=== PATIENT | female | born 1985 | race Caucasian/White ===

== ENCOUNTER → 2020-09-13 14:51 | Outpatient (CLI) | payer BC, SELFPAY ==
--- NOTE | ~2020-09-13 | US_ITS ---
EXAMINATION: US OB <= 14 weeks fetus EXAM DATE: 09/13/2020 15:11 INDICATION: Unable to hear doppler FHT's. 1st trimester. TECHNIQUE: Pelvic obstetrical transabdominal sonogram was performed by a technologist. There are mu ltiple grayscale and Doppler images available for interpretation. There are no earlier studies of th is gestation for comparison. FINDINGS: Uterus measures 10.8 x 7.1 x 9.8 cm. There is intrauterine gestation sac. pole with heart rate confirmed at 179 beats per minute. The 6.1 cm crown-rump length corresponds to estimated gestational age by ultrasound of 12 weeks 4 days, estimated date of confinement 03/24/2021. Yolk sa c is identified. There is no sonographic evidence of subchorionic hemorrhage. Right ovary is morp hologically normal, the left is not identified. IMPRESSION: 1. Live intrauterine gestation, age by ultrasound 12 weeks 4 days. Reviewed, dictated and finalized at location B.
== END ==
PROVIDERS: Visit Provider Obstetrics & Gynecology Gynecology
DX: Z36.89 Encounter for other specified antenatal screening (principal); Z3A.12 12 weeks gestation of pregnancy
CPT/HCPCS: 76801

== ENCOUNTER → 2020-11-01 13:13 | Outpatient (CLI) | payer BC, SELFPAY ==
--- NOTE | ~2020-11-01 | US_ITS ---
EXAMINATION: US OB /maternal detail DATE: 11/01/2020 13:44 INDICATION: Second trimester anatomic survey TECHNIQUE: Real-time ultrasound of the pelvis was performed. COMPARISON: None. FINDINGS: There is a single living fetus in breech presentation. The placenta is anterior and 7 mm from the int ernal cervical os. heart rate is 154 beats per minute (bpm). cardiac activity and movement are noted. The amniotic fluid index is subjectively normal. The following anatomy was identified as normal: 4 chamber heart 3 vessel cord cord insertion kidneys urinary bladder stomach spine diaphragm ventricles cisterna magna cerebellum The following biometric data were obtained: Biparietal diameter (BPD): 4.11 cm; head circumference (HC): 5.8 cm; abdominal circumference (AC): 13 .4 cm; femur length (FL): 2.8 cm. These measurements are concordant. Estimated weight is 259 g +/- 38 g, which correlates with the 12th percentile when 03/24/2021 i s used as estimated date of delivery. As single measurements, these parameters are each equal to the following estimated gestational ages w ith ranges of +/- 2 standard deviations: BPD: 18 weeks 3 days ( 16 weeks 5 days - 20 weeks 1 days). HC: 18 weeks 5 days ( 17 weeks 2 days - 20 weeks 1 days). AC: 18 weeks 6 days ( 16 weeks 6 days - 21 weeks 0 days). FL: 18 weeks 6 days ( 17 weeks 0 days - 20 weeks 4 days). estimated gestational age based solely on measurements from this exam is 18 weeks 5 days +/- 1 weeks 2 days. IMPRESSION: 1. Single living fetus in breech presentation. 2. Estimated weight is 259 g +/- 38 g, which correlates with the 12th percentile when 1 is used as estimated date of delivery. 3. Low-lying placenta. Reviewed, dictated and finalized at location B. IMPRESSION: 1. Single living fetus in breech presentation. 2. Estimated weight is 259 g +/- 38 g, which correlates with the 12th per centile when 03/24/2021 is used as estimated date of delivery. 3. Low-lying placenta.
== END ==
PROVIDERS: Visit Provider Obstetrics & Gynecology Gynecology
DX: Z34.92 Encounter for supervision of normal pregnancy, unspecified, second trimester (principal); Z3A.18 18 weeks gestation of pregnancy
CPT/HCPCS: 76805

== ENCOUNTER → 2020-12-05 14:58 | Outpatient (CLI) | payer BC, SELFPAY ==
--- NOTE | ~2020-12-05 | US_ITS ---
US OB limited DATE: 12/05/2020 15:34 INDICATION: Low lying placenta TECHNIQUE: Real-time imaging and Doppler analysis COMPARISON: 11/01/2020 obstetrical ultrasound examination FINDINGS: Live catal[place] intrauterine gestation of fetus in transverse lie, breech presentation. Feta l heart rate of 160 bpm. Anterior placenta, lower placental margin 6.3 cm above the internal os. Subjectively normal amount of amniotic fluid. IMPRESSION: No evidence of placenta previa Reviewed, dictated and finalized at Location A. Reviewed, dictated and finalized at location A.
== END ==
PROVIDERS: Visit Provider Obstetrics & Gynecology Gynecology
DX: O44.40 Low lying placenta NOS or without hemorrhage, unspecified trimester (principal); Z3A.00 Weeks of gestation of pregnancy not specified
CPT/HCPCS: 76815

== ENCOUNTER 2021-03-06 09:48 | Outpatient (CLI) | payer BC, SELFPAY ==
--- NOTE | 2021-03-07 10:14 | PM.OBTRLD ---
OB - Triage/Final Diagnosis Visit Information Comments/Additional reasons for admission: I have assessed the risk for this patient, Carmelina Woods, and determined that she would benefit from observation care. Final Diagnosis (1) No leakage of amniotic fluid into vagina: Code(s): Z03.71 - Encounter for suspected problem with amniotic cavity and membrane ruled out Status: Acute
== END 2021-03-06 10:50 | disposition home or self-care (01) ==
LOC: ANHOBOP 09:54 → ANHOBPP 09:55
PROVIDERS: PCP Family Medicine; Visit Provider Obstetrics & Gynecology
DX: O41.8X90 Other specified disorders of amniotic fluid and membranes, unspecified trimester, not applicable or unspecified (principal); Z3A.00 Weeks of gestation of pregnancy not specified
CPT/HCPCS: 59025; 84112; 99199

== ENCOUNTER 2021-03-20 10:10 | Inpatient (IN) | payer BC, SELFPAY ==
--- NOTE | 2021-03-06 16:17 | PC.NURSE ---
PATIENT IS PREV C/S--STATES SHE WAS NOT SURE IF SHE WOULD OR HAVE C/S. DECIDED AT PRE ADMIT SHE WANTS TO HAVE A REPEAT C/S WITH TUBAL LIGATION --INSTRUCTED TO LET DR CARABALLO KNOWN AT HER NEXT APPOINTMENT SO THE C/S CAN BE SCHEDULED
--- NOTE | 2021-03-19 09:29 | P.HP_ITS ---
H&P: HPI History of Present Illness Date/Time: 03/19/21 09:29 35 yo at 39 wks here fpr repeat LTCS and BTL. has been uncomplicated. labs: A+; Rubella Immune; RPR -; HepBSAg -; Hiv -; GBS - . Concevied by IVF from frozen. Risks of vs csection were reviewed. Risks of BTL were discussed including infection, bleeding, injury to surrounding organs, and failure with increased risks of ectopci. Agrees to proceed. 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 Family History Family History (Updated 03/06/21 @ 15:58 by Jennifer Healy RN) Father Pre-diabetes Hypertension FHx: cholecystectomy Mother Hypertension FHx: cholecystectomy Sibling FHx: cholecystectomy Social History Social History Smoking status: Never smoker Alcohol intake: never Substance use: never Spiritual care concerns: No Meds Home Medications and Allergies Home Medications Medication Instructions Recorded Confirmed Type aspirin [Aspirin Low Dose] 81 mg PO DAILY 03/06/21 03/06/21 History cholecalciferol (vitamin D3) 50 mcg PO DAILY 03/06/21 03/06/21 History [Vitamin D3] ferrous sulfate 325 mg PO DAILY 03/06/21 03/06/21 History levothyroxine 50 mcg PO DAILY 03/06/21 03/06/21 History prenat.vits,dallin,[id number] 1 tablet PO DAILY 03/06/21 03/06/21 History [ #2] Allergies Allergy/AdvReac Type Severity Reaction Status Date / Time No Known Drug Allergies Allergy Unknown Unknown Verified 03/06/21 15:52 Exam Const: General: healthy appearing and alert Orientation/consciousness: patient oriented x3 Resp: Effort & Inspection: normal respiratory effort Auscultation: clear to auscultation bilaterally Cardio: Rate: regular rate Rhythm: regular rhythm GI: GI Palp: Yes Soft to palpation, No Tenderness to palpation present (GI) and Yes Other GI palpation findings present (fundus soft, FH 42 cm) : External Female Exam: normal external appearance Speculum Exam - Vagina: normal appearance of the vagina and normal vaginal discharge Speculum Exam - Cervix: normal appearance of the cervix Bimanual exam- vagina & uterus: uterine size normal and consistency normal Bimanual Exam- Adnexa, other: normal adnexae and No adnexal tenderness Neuro: General: patient oriented x3 Assessment and Plan Assessment and plan (1) 39 weeks gestation of : Code(s): Z3A.39 - 39 weeks gestation of Status: Acute (2) History of : Code(s): Z98.891 - History of uterine scar from previous surgery Status: Acute Assessment and Plan: Plan repeat LTCS (3) Encounter for sterilization: Code(s): Z30.2 - Encounter for sterilization Status: Acute Assessment and Plan: plan BTL
[2021-03-20] VITALS (25 sets, daily range): BP systolic 86–138; BP diastolic 64–90; PULSE 80–144; RESP 16; TEMP 36.5–37.3; O2SAT 98–99; BMI 32.0
--- NOTE | 2021-03-20 10:22 | WPDANESEPP ---
Anes - Eval Pre Procedure Procedure: Operation Date: 03/21/21 07:30 Proposed Procedures p Repeat Section, with Bilateral Tubal Ligation - Marleny Eisenberg MD Date/Time: 03/20/21 10:22 Surgeon: joseline Preop Diagnosis: labor, previous section, unwanted fertility Pre Op Diagnosis: Pre admission, repeat c- section, sterilization Patient Data Age: 35 Gender: F Height: Weight: Allergies Allergy/AdvReac Type Severity Reaction Status Date / Time No Known Drug Allergies Allergy Unknown Unknown Verified 03/06/21 15:52 Home Medications Medication Instructions Recorded Confirmed Type aspirin [Aspirin Low Dose] 81 mg PO DAILY 03/06/21 03/06/21 History cholecalciferol (vitamin D3) 50 mcg PO DAILY 03/06/21 03/06/21 History [Vitamin D3] ferrous sulfate 325 mg PO DAILY 03/06/21 03/06/21 History levothyroxine 50 mcg PO DAILY 03/06/21 03/06/21 History prenat.vits,dallin,kud-zfts-nccpb 1 tablet PO DAILY 03/06/21 03/06/21 History [ #2] : gestational age Patient hx anesthesia problems: none Family hx anesthesia problems: none Results Review: All pre-operative results and documents have been reviewed as part of the pre-operative evaluation. 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
--- NOTE | 2021-03-20 11:21 | LDADM ---
This patient, Carmelina Woods, was admitted to Labor/Delivery/Recovery 102 on 03/20/21 at 10:10. Plans for labor, pain management and were discussed with patient. Patient/family oriented to hospital policies and general routines including ID bracelet, bed and alarms, visiting hours, pain management, procedures, bathroom and other care routines, personal items, smoking policy, room service/diet and guest tray routines, infant security routines, and visiting hours. Patient/Family are encouraged to report perceived risks to care and to ask questions if they do not understand what they are told or what they should do. See OBIX for further documentation.
[2021-03-20] MEDS: LACTATED RINGERS 1,000 ML 125 ML IV CONT ×2 (11:30→12:57)
[2021-03-20 11:36] LABS: Basophils Percent Auto 0.2 % (0.2-1.2); Eosinophils Percent Auto 0.2 % (0-4.4); Hematocrit 35.5 % (37.0-47.0); Hemoglobin 11.9 g/dL (12.0-15.0); Immature Granulocyte Absolute 0.05 K/mm3 (0.00-0.031); Immature Granulocyte Percent A 0.4 % (0-0.5); Lymphocytes Absolute Auto 1.79 K/mm3 (0.9-3.2); Lymphocytes Percent Auto 15.9 % (18.3-44.2); Mean Corpuscular HGB Conc 33.5 g/dl (32-36); Mean Corpuscular Hemoglobin 33.1 pg (26-34); Mean Corpuscular Volume 98.9 fl (80-100); Mean Platelet Volume 11.3 fl (7.4-10.4); Monocytes Absolute Auto 0.6 K/mm3 (0.1-0.6); Monocytes Percent Auto 5.7 % (2.6-8.5); Neutrophils Absolute Auto 8.7 K/mm3 (1.3-6.7); Neutrophils Percent Auto 77.6 % (45.5-73.1); Platelet Count Result 250 k/mm3 (150-375); Red Blood Count 3.59 M/mm3 (4.2-5.4); Red Cell Distribution Width 13.4 % (11.5-14.5); White Blood Count 11.2 K/mm3 (4.5-10.0)
[2021-03-20] MEDS: fentaNYL CITRATE INJ (*CRX) 100 MCG/2 ML VIAL 50 MCG IV PUSH (13:07)
[2021-03-20] MEDS: IBUPROFEN 600 MG TABLET PO ×2 (13:57→19:48)
[2021-03-20] MEDS: OXYTOCIN 30 UNITS/NS 500 ML 30 UNITS/500 ML BAG 125 UNITS IV CONT (13:59)
[2021-03-20] MEDS: HYDROcodone/acetaminophen (*CRX) 10-325 MG TABLET 1 TAB PO (16:07)
--- NOTE | 2021-03-20 19:00 | OBPPTRN ---
1644 Patient transferred to post room #290 via W/C. Support person present. Oriented to unit, room, information board, rooming in, admission packet and security measures. Patient verbalizes understanding.
[2021-03-20] MEDS: DOCUSATE SODIUM 100 MG CAPSULE PO (19:42)
[2021-03-20] MEDS: ACETAMINOPHEN 325 MG TABLET 650 MG PO (23:40)
[2021-03-21] MEDS: IBUPROFEN 600 MG TABLET PO ×3 (04:47→17:31)
[2021-03-21 04:53] VITALS: BP 120/71; PULSE 86; RESP 16; TEMP 36.9; O2SAT 96
[2021-03-21 05:28] LABS: Hematocrit 22.2 % (37.0-47.0); Hemoglobin 7.5 g/dL (12.0-15.0)
[2021-03-21] MEDS: LEVOTHYROXINE SODIUM 50 MCG TABLET PO (07:00)
--- NOTE | 2021-03-21 07:00 | PC.NURSE ---
PT introductions made and plan of care discussed per post , pain management, breast feeding, daily care activities. PT and spouse both recipients of such instructions and no barriers of learning identified this shift. PT received instructions per one to one discussion, mom baby care guide and demonstrations per this shift. Pt verbalized understanding of such care.
--- NOTE | 2021-03-21 07:41 | P.PCNOB_ITS ---
OB - Delivery Note Procedure Delivery date: 03/20/21 Procedure: Procedures Operation Date: 03/21/21 07:30 <No data on this case meets the specified criteria> Vaginal after Csection events: Previous Intrapartal events: None Induction method: AROM Delivery monitor: external FHT, external uterine and internal uterine Route of delivery: vacuum extraction (maternal Exhaustion1 pull no pop offs set to green pressure on Kiwi vaccuum) Indication for instrumentation: maternal exhaustion Laceration Description: Perineal - 2nd Degree Delivery repair: vicryl Specimen: No Quantitative Blood Loss (ml): 425 Anesthesia type: Local Disposition: floor [place] Baby Date of : 03/20/21 Time of : 12:49 Weeks of gestation at delivery: 39 gender: Female Weight (pounds): 8 Weight (ounces): 1 presentation: vertex position: Left Occiput Anterior Placenta delivery description: Spontaneous cord vessel description: 3 Vessels and Clamped/Cut score one minute: 8 score five minutes: 9
[2021-03-21 08:40] VITALS: BP 113/74; PULSE 93; RESP 18; TEMP 36.4; O2SAT 98
[2021-03-21 09:15] VITALS: PULSE 93; RESP 18; O2SAT 98
[2021-03-21] MEDS: MULTIVIT/MIN/PREN/FOL AC/IRON TABLET 1 TAB PO (09:16)
[2021-03-21] MEDS: POLYSACCHARIDE IRON COMPLEX 150 MG CAPSULE PO ×2 (09:16→17:30)
[2021-03-21] MEDS: DOCUSATE SODIUM 100 MG CAPSULE PO ×2 (09:16→17:30)
[2021-03-21] MEDS: ACETAMINOPHEN 325 MG TABLET 650 MG PO ×2 (09:16→17:30)
--- NOTE | 2021-03-21 10:39 | PM.OBPNVD ---
OB - PN: Subj Subjective Date/time seen: 03/21/21 10:39 doing well no complaints OB - PN: Obj Data Labs CBC & Chem 7: 03/21/21 04:58 Labs: Laboratory Results - last 24 hr 03/20/21 03/20/21 03/21/21 11:08 11:08 04:58 WBC 11.2 H RBC 3.59 L Hgb 11.9 L 7.5 L D Hct 35.5 L 22.2 L MCV 98.9 MCH 33.1 MCHC 33.5 RDW 13.4 Plt Count 250 MPV 11.3 H Immature Gran % (Auto) 0.4 Neut % (Auto) 77.6 H Lymph % (Auto) 15.9 L [place] % (Auto) 5.7 Eos % (Auto) 0.2 Baso % (Auto) 0.2 Lymph # (Auto) 1.79 [place] # (Auto) 0.6 Eos # (Auto) 0.0 Baso # (Auto) 0.0 Abs Immat Gran (auto) 0.05 H Absolute Neuts (auto) 8.7 H Absolute Nucleated RBC 0.0 Nucleated RBC % 0.0 Blood Type A Positive Antibody Screen Negative OB - PN A/P Assessment and Plan (1) , delivered: Code(s): O34.219 - Maternal care for unspecified type scar from previous delivery Status: Acute Assessment and Plan: continue with pp care. Time Spent With Patient Time: Total time spent is greater than 50% in coordination of care (as documented) at patient's floor/unit and/or counseling patient: Exam Narrative: ff below umbilicus
--- NOTE | 2021-03-21 11:07 | WPDANLDPN2 ---
Anes-Prog Note L&D Date/Time: 03/21/21 11:07 Comfortable throughout: labor and delivery Neuraxial method: epidural Epidural/Spinal procedure site: clean & non-tender Neuro status: Neuro function grossly intact. Cardiovascular status: normal Respiratory status: normal Airway patency: baseline Mental status: baseline Post-Op hydration status: normal Vital Signs: Last Vital Signs Temp 36.4 C 03/21/21 08:40 Pulse 93 03/21/21 08:40 Resp 18 03/21/21 08:40 BP 113/74 03/21/21 08:40 Pulse Ox 98 03/21/21 08:40 Pain score (VAS): 0 Post-procedural complaints: none Patient feedback: Patient satisfied with anesthetic care.
[2021-03-21 11:39] VITALS: BP 123/70; PULSE 86; RESP 16; TEMP 36.6; O2SAT 99
--- NOTE | 2021-03-21 13:30 | PC.NURSE ---
Mother called out for assist with feeding, reporting tenderness during entire feeding. . Reviewed feeding cues, frequencies, duration of feedings, feeding elimination flow sheet, and signs of adequate intake. Demonstrated stimulation techniques to wake infant for feeding. Mother attempts to breast in cradle allowing to self attach with a shallow latch. Suggested mother release latch and attempt using cross cradle. Assisted with infant to breast. Reviewed positioning/alignment in cross cradle, holding breast in ?U? hold and guided asymmetrical latch on. Reviewed rational for each. able to latch correctly within a few attempts. Infant nursed eagerly with steady draws and frequent swallowing noted, some pausing noted. Reviewed signs of a correct latch, effective nursing and suck swallow ratio. Suggested mother stimulate while feeding to increase stimulation for milk supply, for increased intake and to assist with maintaining deep latch. Infant would slip to shallow latch causing tenderness. Demonstrated how to adjust latch more deeply while feeding as needed. Mother reports she can feel the difference in latch with less tenderness. Nipple care reviewed of lanolin after feedings, warm compresses as needed. Instructed mother to call out for RN assistance if she is unable to latch for feeding or she has discomfort with nursing. Instructed feeding should be initiated three hours from start of last feeding or if feeding cues are noted before. Mother voiced understanding of information
[2021-03-21 13:34] LABS: Rapid Plasma Reagin Non-Reactive (NonReactive)
[2021-03-21 19:30] VITALS: BP 114/74; PULSE 94; RESP 16; TEMP 36.8; O2SAT 98
[2021-03-22] MEDS: IBUPROFEN 600 MG TABLET PO ×2 (00:21→07:19)
[2021-03-22] MEDS: LEVOTHYROXINE SODIUM 50 MCG TABLET PO (07:19)
[2021-03-22 07:40] VITALS: BP 121/81; PULSE 80; RESP 16; TEMP 36.6; O2SAT 99
--- NOTE | 2021-03-22 07:42 | PM.OBPNVD ---
OB - PN: Subj Subjective Date/time seen: 03/22/21 07:42 doing well desires home today OB - PN: Obj Data Labs CBC & Chem 7: 03/21/21 04:58 Labs: Laboratory Results - last 24 hr 03/20/21 11:08 RPR Non-reactive OB - PN A/P Assessment and Plan (1) , delivered: Code(s): O34.219 - Maternal care for unspecified type scar from previous delivery Status: Acute Assessment and Plan: d/c home with Micronor and Iron. Time Spent With Patient Time: Total time spent is greater than 50% in coordination of care (as documented) at patient's floor/unit and/or counseling patient: Exam Narrative: ff below umbilicus
--- NOTE | 2021-03-22 08:10 | PC.NURSE ---
Observed mother is able to independently latch with appropriate positioning/alignment. She denies any nipple discomfort, is feeding as required and waking infant to feed if needed. has had at least 8 effective feedings in the past 24 hours, and is currently meeting outcomes for weight, output, jaundice and feeding frequencies. Mother states she feels confident to continue effective at home. Reviewed transition to breast milk, signs of adequate intake, and engorgement/relief. Instructed to call ICP if intake/output less than required. Reviewed regular medications mother is taking. Information provided per Valerie. Reviewed community resources on the [facility] website and in the Mom/Baby guide. Information on outpatient services provided. Mother has no further questions at this time.
--- NOTE | 2021-03-22 09:00 | PC.NURSE ---
Patient viewed the discharge video Mother & Baby Care, The First Two Weeks . Patient was given the opportunity and encouraged to ask questions. Patient verbalized understanding of information shared and has been given the mother/baby guide for home reference.
[2021-03-22] MEDS: DOCUSATE SODIUM 100 MG CAPSULE PO (10:01)
[2021-03-22] MEDS: POLYSACCHARIDE IRON COMPLEX 150 MG CAPSULE PO (10:02)
[2021-03-22] MEDS: MULTIVIT/MIN/PREN/FOL AC/IRON TABLET 1 TAB PO (10:02)
[2021-03-23 11:26] VITALS: BP 141/82; PULSE 82; RESP 20; TEMP 36.8; O2SAT 100
--- NOTE | 2021-04-01 09:03 | PM.OBDSVD ---
DS: Admitting Diagnosis Discharge Date 03/22/21 Admitting Diagnosis Labor OB - DS: Summary OB Procedures : NST and Ultrasound OB Procedures Intrapartum: Vacuum extraction and OB Procedures: : None Peripartum Data Procedures: Procedures Operation Date: 03/21/21 07:30 <No data on this case meets the specified criteria> Time Spent with Patient Time attestation: Total time spent providing and/or coordinating discharge services: Discharge Plan Discharge Attending physician on discharge: Fran Monet Consulting providers: Marleny Eisenberg Discharging Clinician: Fran Monet Patient Disposition: Home, Self-Care Activity: may shower and pelvic rest Diet: regular Discharge Instructions: Education: Mom and Baby Guide and Preeclampsia Handout Given to: Mother Follow-Up: Call your delivering provider's office for an appointment to be seen in: 6 Weeks Mom and baby should come to the [facility] for the follow-up appointment. Appointment Date/Time: March 23, 2021 at 11:00 am What to expect at your follow-up visit: Physical Assessment Call [phone] if you are unable to keep your appointment time. BREAST CARE: * Wear a snug supportive bra. * For engorgement discomfort: Breast Feeding: * Apply warm moist washcloths * Express milk as needed to relieve engorgement * Wear loose clothing * For sore nipples: * Identify correct latch-on * Apply warm moist washcloths before and after nursing * Air dry nipples after nursing * May apply Lansinoh cream to nipples EPISIOTOMY/PERINEAL CARE: * Until bleeding stops, use your francine bottle after urinating * Change your pad frequently throughout the day * You may take sitz baths several times a day (fill your bathtub with warm water and soak for 20 minutes.) Do NOT bathe in the water * No tub baths until seen by your physician - You may shower ACTIVITY: * Rest as much as possible. * Do not exercise or lift anything heavier than your baby (such as laundry or other children.) * Avoid stairs or driving as much as possible. * Do not put anything into the vagina. No douching, tampons, or sexual activity until seen by physician. NOTIFY PHYSICIAN IF YOU HAVE ANY QUESTIONS OR IF ANY OF THE FOLLOWING SYMPTOMS OCCUR: * If your episiotomy becomes red, swollen, or more painful than what you have experienced in the hospital. * If your vaginal bleeding becomes foul smelling. * If your vaginal bleeding becomes more heavy than a period or if your bleeding changes from pink to bright red. However, you may pass an occasional walnut-sized clot once or twice for the first week . * If you experience a sharp, shooting pain in you calves. * If you discover a hard, reddened area on your breast or if you experience flu-like symptoms. DIET: * Eat regular, well-balanced meals. * Drink plenty of fluids daily. If , drink to thirst. Stand Alone Forms: General Discharge Information Follow-up/Referrals: Marleny Eisenberg MD [Physician] - Discharge Medications: New norethindrone acetate [Aygestin] 5 mg tablet 5 mg PO DAILY Qty: 30 RF: 9 Continued levothyroxine 50 mcg Tablet 50 mcg PO DAILY RF: 0 ferrous sulfate 325 mg (65 mg iron) Tablet,Delayed Release (Dr/Ec) 325 mg PO DAILY RF: 0 prenat.vits,dallin,cyr-ayao-usnzp Tablet 1 tablet PO DAILY RF: 0 cholecalciferol (vitamin D3) [Vitamin D3] 50 mcg (2,000 unit) Capsule 50 mcg PO DAILY RF: 0 Discontinued aspirin [Aspirin Low Dose] 81 mg Tablet,Delayed Release (Dr/Ec) 81 mg PO DAILY RF: 0 Date of admission: 03/20/21 10:10 Primary Care Provider: Miri Anthony Admitting Provider: Fran Monet Attending physician on admission: Fran Monet Condition: Stable
== END 2021-03-22 11:22 | disposition home or self-care (01) | DRG 807 ==
LOC: ANHLDR 16:01 → ANHOB2 03-22 07:47 → ANHLDR 03-25 09:32 → ANHOB2 03-25 09:32
PROVIDERS: Admitting Provider Obstetrics & Gynecology; PCP Family Medicine; Visit Provider Obstetrics & Gynecology
DX: O34.219 Maternal care for unspecified type scar from previous cesarean delivery (principal); Z37.0 Single live birth; O70.1 Second degree perineal laceration during delivery; Z3A.39 39 weeks gestation of pregnancy
CPT/HCPCS: 36415; 85014; 85018; 85025; 86592; 86850; 86900; 86901; A9270; J2590; J2795; J3010; J7120